=== PATIENT | female | born 1950 | race Two or more races ===

== ENCOUNTER 2022-12-19 16:33 | Inpatient (IN) | payer BC, MEDICAID ==
[~2022-12-19] VITALS: Ht 160 cm; Wt 75.4 kg
[2022-12-19 17:02] LABS: Basophils # (auto) 0 10 ^3/uL (0-0.2); Basophils % (auto) 0.5 % (0.0-2.0); Eosinophils # (auto) 0.2 10 ^3/uL (0-0.8); Eosinophils % (auto) 2.3 % (0.0-7.0); Hemoglobin 13.7 g/dL (12.2-16.2); Lymphocytes % (auto) 44.3 % (10.0-50.0); Mean Corpuscular Hemoglobin 31.2 pg (28.0-32.0); Mean Corpuscular Hgb Conc. 33.5 g/dL (32.0-36.0); Monocytes # (auto) 0.4 10 ^3/uL (0-1.3); Monocytes % (auto) 4.9 % (0.0-12.0); Neutrophils # (auto) 4.3 10 ^3/uL (1.6-8.6); Nucleated Red Blood Cells % 0.1 %; Red Cell Distribution Width 13.5 % (11.8-14.3)
[2022-12-19 17:22] LABS: Calcium 9.1 mg/dL (8.5-10.1); Magnesium 2.2 mg/dL (1.6-2.6); Potassium 4.3 mmol/L (3.5-5.1)
[2022-12-19 17:25] LABS: BUN/Creatinine Ratio 15.7 (10.0-20.0); Bilirubin, Total 0.4 mg/dL (0.2-1.0); Total Protein 7.5 g/dL (6.4-8.2)
[2022-12-19 17:27] LABS: INR 1.11 (0.9-1.15); Partial Thromboplastin Time 30.5 SEC (24.5-34.5)
[2022-12-19] MEDS ORDERED: ASPirin 81 mg TAB PO ONE (18:45)
[2022-12-19 19:46] VITALS: PULSE 58; RESP 12; O2SAT 94
[2022-12-19] MEDS ORDERED: ENOXAPARIN SOD 100 MG/1 ML SYRINGE SC ONE (20:15)
[2022-12-19 20:43] LABS: Urine Bacteria FEW /hpf (None Seen); Urine Blood Negative /uL (Negative); Urine Specific Gravity 1.006 (1.001-1.035); Urine WBC 2 /hpf (0 - 5)
[2022-12-19] MEDS ORDERED: ATORVASTATIN 20 MG TAB PO SCH (20:45)
[2022-12-19] MEDS ORDERED: METOPROLOL TARTRATE 1MG/1ML-5ML VIAL IV ONE (20:45)
[2022-12-19] MEDS ORDERED: hydrALAZINE HCL 20 MG/ML VL IV PRN ×2 (20:45→23:45)
[2022-12-19] MEDS ORDERED: ONDANSETRON HCL 4 MG/2 ML VIAL IV PRN (20:45)
[2022-12-19] MEDS ORDERED: NITROGLYCERIN 0.4 MG SL TAB SL PRN (20:45)
[2022-12-19] MEDS ORDERED: MORPHINE SULFATE INJ 2 MG/ml SYRG IV PRN (20:45)
[2022-12-19] MEDS: SODIUM CHLORIDE 0.9% 1,000 ML IV SCH (21:57)
[2022-12-19] MEDS ORDERED: VERAPAMIL 2.5MG/ML INJ 2ML VIAL IV ONE (22:09)
[2022-12-19] MEDS ORDERED: ANGIOMAX 250 MG VIAL IV ONE (22:09)
[2022-12-19] MEDS ORDERED: HEPARIN SODIUM (PORCINE) 5000 UNITS/ML 1ML VIAL ONE (22:09)
[2022-12-19] MEDS ORDERED: IODIXANOL 320MG/ML 100ML BTL IV ONE (22:10)
[2022-12-19] MEDS ORDERED: fentaNYL CITRATE 100 MCG/2 ML VL ONE (22:10)
[2022-12-19] MEDS ORDERED: LIDOCAINE 2%HCL (LOCAL ANESTH.) INJ 20ML MDV ONE (22:10)
[2022-12-19] MEDS ORDERED: SODIUM CHL 0.9% 50 ML ONE (22:10)
[2022-12-19] MEDS ORDERED: MIDAZOLAM HCL 2MG/2ML 2ml VIAL (1mg/ml) ONE (22:10)
[2022-12-19] MEDS ORDERED: hydrALAZINE HCL 20 MG/ML VL ONE (23:51)
[2022-12-20] MEDS ORDERED: METOPROLOL SUCCINATE XL 50 MG TAB PO ONE (02:00)
[2022-12-20] MEDS ORDERED: ACETAMINOPHEN 325 MG TAB PO PRN (02:00)
[2022-12-20 03:14] VITALS: BP 152/71; PULSE 91; RESP 16; TEMP 97.7; O2SAT 91
[2022-12-20 05:00] VITALS: BP 148/69; PULSE 83; RESP 20; TEMP 98; O2SAT 95
[2022-12-20] MEDS: SODIUM CHLORIDE 0.9% 1,000 ML IV SCH (06:45)
[2022-12-20 07:02] LABS: Basophils # (auto) 0 10 ^3/uL (0-0.2); Basophils % (auto) 0.4 % (0.0-2.0); Eosinophils # (auto) 0 10 ^3/uL (0-0.8); Eosinophils % (auto) 0.3 % (0.0-7.0); Hematocrit 39.8 % (36.0-46.0); Hemoglobin 13.6 g/dL (12.2-16.2); Lymphocytes # (auto) 3.5 10 ^3/uL (0.4-5.4); Lymphocytes % (auto) 30.8 % (10.0-50.0); Mean Corpuscular Hgb Conc. 34.3 g/dL (32.0-36.0); Mean Corpuscular Volume 93.4 fL (80.0-100.0); Monocytes # (auto) 0.6 10 ^3/uL (0-1.3); Monocytes % (auto) 4.9 % (0.0-12.0); Neutrophils # (auto) 7.3 10 ^3/uL (1.6-8.6); Neutrophils % (auto) 63.6 % (37.0-80.0); Nucleated Red Blood Cells % 0.1 %; Red Blood Cells 4.26 10^6/uL (4.0-5.20); Red Cell Distribution Width 13.3 % (11.8-14.3); White Blood Cell 11.4 10^3/uL (4.4-10.8)
[2022-12-20 07:29] LABS: BUN/Creatinine Ratio 24.4 (10.0-20.0); Calcium 8.5 mg/dL (8.5-10.1); Potassium 3.5 mmol/L (3.5-5.1)
[2022-12-20] MEDS ORDERED: fentaNYL CITRATE 100 MCG/2 ML VL ONE (07:38)
[2022-12-20] MEDS ORDERED: ANGIOMAX 250 MG VIAL IV ONE (07:38)
[2022-12-20] MEDS ORDERED: MIDAZOLAM HCL 2MG/2ML 2ml VIAL (1mg/ml) ONE (07:38)
[2022-12-20] MEDS ORDERED: SODIUM CHL 0.9% 0 ML ONE (07:38)
[2022-12-20] MEDS ORDERED: LIDOCAINE 2%HCL (LOCAL ANESTH.) INJ 20ML MDV ONE (07:39)
[2022-12-20] MEDS ORDERED: IOHEXOL 350 MG/ML 100ML IJ ONE (07:39)
[2022-12-20] MEDS ORDERED: HEPARIN IN NS 1000Units/500mL 0 ML ONE (07:39)
[2022-12-20] MEDS ORDERED: ASPI-325 PO (07:53)
[2022-12-20] MEDS ORDERED: METO-6 PO (07:53)
[2022-12-20] MEDS ORDERED: ATOR20TA50 PO (07:53)
[2022-12-20] MEDS ORDERED: LEVO750T8 PO (07:56)
[2022-12-20 08:00] VITALS: PULSE 71; PULSE 81; RESP 16; O2SAT 96
[2022-12-20 09:00] VITALS: BP 148/66; PULSE 71; RESP 17; TEMP 97.8; O2SAT 96
[2022-12-20] MEDS ORDERED: cefTRIAXone 1GM/50ML D5W 50 ML IV SCH (09:00)
[2022-12-20] MEDS ORDERED: ENOXAPARIN SOD 80 MG/0.8ML SYRINGE SC SCH (10:00)
[2022-12-20] MEDS ORDERED: ASPirin 81 mg TAB PO SCH (10:00)
[2022-12-20] MEDS ORDERED: ASPirin-EC 81 mg tab PO SCH (10:00)
[2022-12-20] MEDS ORDERED: METOPROLOL SUCCINATE XL 50 MG TAB PO SCH ×2 (10:00→14:00)
[2022-12-20 10:12] VITALS: BP 148/66; PULSE 72; RESP 18; TEMP 98.2; O2SAT 95
[2022-12-20] MEDS ORDERED: ATORVASTATIN 20 MG TAB PO SCH (22:00)
== END 2022-12-20 12:29 | disposition home health service (06) | DRG 282 ==
LOC: ER 16:33 → TELE 20:54 → TELE-WESTW 22:25
PROVIDERS: ADMIT Hospitalist; ATTEND Hospitalist
PROC: 4A023N7 Measurement of Cardiac Sampling and Pressure, Left Heart, Percutaneous Approach (ICD-10-PCS; principal; 2022-12-19)
PROC: B211YZZ Fluoroscopy of Multiple Coronary Arteries using Other Contrast (ICD-10-PCS; 2022-12-19)
PROC: B215YZZ Fluoroscopy of Left Heart using Other Contrast (ICD-10-PCS; 2022-12-19)
DX: I21.4 Non-ST elevation (NSTEMI) myocardial infarction (principal); I10 Essential (primary) hypertension; I25.2 Old myocardial infarction; M54.30 Sciatica, unspecified side; Z79.899 Other long term (current) drug therapy
CPT/HCPCS: 36415; 71045; 80048; 80053; 80061; 81001; 83036; 83735; 83880; 84484; 85025; 85610; 85730; 93005; 93458; 99152; G0378; J0696; J2250; Q9967

== ENCOUNTER 2025-01-22 18:02 | Emergency (ER) | payer BC, MEDICAID ==
[~2025-01-22] VITALS: Ht 160 cm; Wt 79.5 kg
[~2025-01-22 18:02] MED LIST: ASPI-325 PO; ATOR20TA50 PO; LEVO750T8 PO; METO-6 PO
[2025-01-22 18:44] LABS: Hematocrit 39.2 % (36.0-46.0); Hemoglobin 13.7 g/dL (12.2-16.2); Mean Corpuscular Hemoglobin 32.4 pg (28.0-32.0); Mean Corpuscular Volume 92.5 fL (80.0-100.0); Nucleated Red Blood Cells % 0.1 %
--- NOTE | 2025-01-22 18:55 | ED.PDOC ---
History of Present Illness HPI Comments 74-year-old female came to ER for chest pains. Patient has history of hypertension. States for the past few hours, she has been experiencing epigastric abdominal pain, radiating to her back, associated with midsternal chest pains. She denies any history of abdominal surgeries. Blood pressure up on arrival was 201/112 mmHg Chief Complaint: Chest Pain Time Seen by MD: 18:55 Primary Care Provider: NONE Reviewed Notes: Nurses Notes Allergies: Coded Allergies: NO KNOWN ALLERGIES (Unverified , 12/19/22) Home Meds Active Scripts Levofloxacin (Levaquin 750 mg) 750 Mg Tab, 1 TAB PO DAILY, #5 TAB Prov:GIORGI DONALDSON MD 12/20/22 Metoprolol Succinate (Toprol Xl) 50 Mg Tab, 25 MG PO DAILY for 30 Days, #15 TAB 2 Refills Prov:GIORGI DONALDSON MD 12/20/22 Aspirin (Aspirin Low Dose) 81 Mg Tab, 81 MG PO DAILY for 30 Days, #30 TAB 2 Refills Prov:GIORGI DONALDSON MD 12/20/22 Atorvastatin Calcium (ATORVASTATIN CALCIUM) 20 Mg Tab, 40 MG PO HS for 30 Days, #60 TAB 2 Refills Prov:GIORGI DONALDSON MD 12/20/22 Information Source: Patient Mode of Arrival: Ambulatory Severity: Moderate Timing: Hours Duration: Since onset Past Medical History PAST MEDICAL HISTORY: HTN, [place] Surgical History: Denies all surgeries 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 Family History Family History: Reviewed,noncontributory to illness Social History Smoker: Non-Smoker Alcohol: Denies ETOH Use Drugs: Denies Drug Use Lives In: Home Constitutional: denies: chills, diaphoresis, fatigue, fever, malaise, sweats, weakness, others EENTM: denies: blurred vision, double vision, ear bleeding, ear discharge, ear drainage, ear pain, ear ringing, eye pain, eye redness, hearing loss, mouth pain, mouth swelling, nasal discharge, nose bleeding, nose congestion, nose pain, photophobia, tearing, throat pain, throat swelling, voice changes, others Respiratory: denies: cough, hemoptysis, orthopnea, SOB at rest, shortness of breath, SOB with excertion, stridor, wheezing, others Cardiovascular: reports: chest pain; denies: dizzy spells, diaphoresis, Dyspnea on exertion, edema, irregular heart beat, left arm pain, lightheadedness, palpitations, PND, syncope, others Gastrointestinal: reports: abdominal pain; denies: abdomen distended, blood streaked bowels, constipated, diarrhea, dysphagia, difficulty swallowing, hematemesis, melena, nausea, poor appetite, poor fluid intake, rectal bleeding, rectal pain, vomiting, others Genitourinary: denies: abnormal vagina bleeding, burning, dyspareunia, dysuria, flank pain, frequency, hematuria, incontinence, pain, , vagina discharge, urgency, others Neurological: denies: dizziness, fainting, headache, left sided numbness, left sided weakness, numbness, paresthesia, pre-existing deficit, right sided numbness, right sided weakness, seizure, speech problems, tingling, tremors, weakness, others Musculoskeletal: reports: back pain; denies: gout, joint pain, joint swelling, muscle pain, muscle stiffness, neck pain, others Integumetry: denies: bruises, change in color, change in hair/nails, dryness, laceration, lesions, lumps, rash, wounds, others Allergic/Immunocompromised: denies: Difficulty Healing, Frequent Infections, Hives, Itching, others Hematologic/Lymphatic: denies: anemia, blood clots, easy bleeding, easy bruising, swollen glands, others Endocrine: denies: excessive hunger, excessive sweating, excessive thirst, excessive urination, flushing, intolerance to cold, intolerance to heat, unexpl ained weight gain, unexplained weight loss, others Psychiatric: denies: anxiety, bipolar disorder, depression, hopeless, panic disorder, schizophrenia, sleepless, suicidal, others Physical Exam General Appearance: No Apparent Distress, Normal HEENT: Normal ENT Inspection, Pharynx Normal, TMs Normal Neck: Full Range of Motion, Non-Tender, Normal, Normal Inspection Respiratory: Chest Non-Tender, Lungs Clear, No Accessory Muscle Use, No Respiratory Distress, Normal Breath Sounds Cardiovascular: No Edema, No JVD, No Murmur, No Gallop, Normal Peripheral Pulses, Regular Rate/Rhythm Breast Exam: Deferred Gastrointestinal: No Organomegaly, Non Tender, No Pulsatile Mass, Normal Bowel Sounds, Soft Genitalia: Deferred Pelvic: Deferred Rectal: Deferred Extremities: No calf tenderness, Normal capillary refill, Normal inspection, Normal range of motion, Non-tender, No pedal edema Musculoskeletal : Apperance: Normal Neurologic: Alert, kiln cleaner II-XII nml as Tested, No Motor Deficits, Normal Affect, Normal Mood, No Sensory Deficits Cerebellar Function: Normal Reflexes: Normal Skin: Dry, Normal Color, Warm Lymphatic: No Adenopathy Was a procedure done? Was a procedure done?: No Differential Dx Considerations may include: Anemia, electrolyte imbalance, gallstones, coronary artery disease, hypertensive urgency, GERD X-Ray, Labs, Meds, VS Vital Signs Date Time Temp Pulse Resp B/P (MAP) Pulse Ox O2 Delivery O2 Flow Rate FiO2 01/22/25 20:36 202/91 01/22/25 20:27 97.5 74 18 (128) 95 97.5 01/22/25 19:11 79 01/22/25 18:05 98.3 89 20 201/112 96 98.3 Lab Test 01/22/25 19:34 01/22/25 18:22 Range/Units Troponin I High Sensitivity < 3 L < 3 L </=34 ng/L White Blood Count 12.1 H 4.4-10.8 10^3/uL Red Blood Count 4.24 4.0-5.20 10^6/uL Hemoglobin 13.7 12.2-16.2 g/dL Hematocrit 39.2 36.0-46.0 % Mean Corpuscular Volume 92.5 80.0-100.0 fL Mean Corpuscular Hemoglobin 32.4 H 28.0-32.0 pg Mean Corpuscular Hemoglobin Concent 35.0 32.0-36.0 g/dL Red Cell Distribution Width 13.6 11.8-14.3 % Platelet Count 201 140-450 10^3/uL Mean Platelet Volume 9.3 6.9-10.8 fL Neutrophils (%) (Auto) 54.6 37.0-80.0 % Lymphocytes (%) (Auto) 37.2 10.0-50.0 % Monocytes (%) (Auto) 5.7 0.0-12.0 % Eosinophils (%) (Auto) 2.1 0.0-7.0 % Basophils (%) (Auto) 0.4 0.0-2.0 % Neutrophils # (Auto) 6.6 1.6-8.6 10 ^3/uL Lymphocytes # (Auto) 4.5 0.4-5.4 10 ^3/uL Monocytes # (Auto) 0.7 0-1.3 10 ^3/uL Eosinophils # (Auto) 0.2 0-0.8 10 ^3/uL Basophils # (Auto) 0.1 0-0.2 10 ^3/uL Nucleated Red Blood Cells 0.1 % Sodium Level 140 136-145 mmol/L Potassium Level 3.9 3.5-5.1 mmol/L Chloride Level 106 98-107 mmol/L Carbon Dioxide Level 22 20-31 mmol/L Anion Gap 12 5-15 Blood Urea Nitrogen 8 L 9-23 mg/dL Creatinine 0.68 0.550-1.02 mg/dL Glomerular Filtration Rate Calc 92 >90 mL/min BUN/Creatinine Ratio 11.8 10.0-20.0 Serum Glucose 137 H 74-106 mg/dL Calcium Level 9.5 8.7-10.4 mg/dL Total Bilirubin 0.6 0.2-1.0 mg/dL Aspartate Amino Transferase (AST) 32 13-40 U/L Alanine Aminotransferase (ALT) 33 7-40 U/L Alkaline Phosphatase 58 46-116 U/L B-Type Natriuretic Peptide 34.35 0-100 pg/mL Total Protein 7.8 5.7-8.2 g/dL Albumin 4.4 3.2-4.8 g/dL Lipase 21 12-53 U/L Current Medications Medications (Trade) Dose Ordered Sig/Ever Route Start Time Stop Time Status Last Admin Clonidine HCl (Catapres Tablet) 0.2 mg ONCE ONCE PO 01/22/25 20:45 01/22/25 20:46 DC 01/22/25 20:36 Time of 1ST Reevaluation: 18:53 Reevaluation 1ST: Unchanged Patient Education/Counseling: Diagnosis, Treatment Family Education/Counseling: No Family Present SEPSIS Sepsis Screen Date sepsis recognized/suspect: Jan 22, 2025 Time Sepsis recognized/suspect: 1804 Recent Procedure: No On Antibiotic Therapy: No Respiratory Rate >20: No Heart Rate >90: No Temp<36 C (96.8 F) or >38.3 C: No SBP <90 or MAP <65 mmHG: No New Acute Mental Status Change: No Is the patient on CPAP, BIPAP,: No Physician Orders Electrocardigram (01/22/25 18:11) Troponin-I Hs (01/22/25 21:11) Chest Xray 1 View (01/22/25 18:11) Gallbladder (01/22/25 18:52) Vital Signs Date Time Temp Pulse Resp B/P (MAP) Pulse Ox O2 Delivery O2 Flow Rate FiO2 01/22/25 20:36 202/91 01/22/25 20:27 97.5 74 18 202/ (128) 95 97.5 01/22/25 19:11 79 01/22/25 18:05 98.3 89 20 201/112 96 98.3 Laboratory Tests Test 01/22/25 18:22 White Blood Count 12.1 10^3/uL (4.4-10.8) H Medications Medications Dose Ordered Sig/Ever Route Start Time Stop Time Status Last Admin Dose Admin Clonidine HCl 0.2 mg ONCE ONCE PO 01/22/25 20:45 01/22/25 20:46 DC 01/22/25 20:36 Departure 1 Departure Time of Disposition: 20:51 Impression: Primary Impression: Acute cholecystitis Disposition: ADMITTED INPATIENT Admit to: Med Surg Condition: Guarded Comments 74-year-old female complaining of epigastric pain. She is quite tender there. On lab review her white blood cell count is elevated at 12. Ultrasound shows cholecystitis with gallstones and wall thickening. Patient was given IV fluids and Zosyn antibiotics. Patient will need admission for specialty consultation and possible cholecystectomy. Critical Care Note Critical Care Time?: Yes (35 min-critical care time only) Critical care comment: Total critical care time: Approximately 36 minutes Due to a high probability of clinically significant, life threatening deteriora tion, the patient required my highest level of preparedness to intervene emergently and I personally spent this critical care time directly and personally managing the patient. This critical care time included obtaining a history; examining the patient; pulse oximetry; ordering and review of studies; arranging urgent treatment with development of a management plan; evaluation of patient's response to treatment; frequent reassessment; and, discussions with other providers. This critical care time was performed to assess and manage the high probability of imminent, life-threatening deterioration that could result in multi-organ failure. It was exclusive of separately billable procedures and treating other patients. Stability Stability form required: No Heart Score Heart Score: Heart Score Response (Comments) Value History Slightly Suspicious 0 EKG Repolarization Disturb 1 Age >65 2 Risk Factors >3 or Hx ASHD 2 Troponin Normal limit 0 Total 5 I personally scribed for MARCELO HILLIARD MD ([email or web address]) on 01/22/25 at 18:55. Electronically submitted by Gene Calvert ([email or web address]). MARCELO HILLIARD MD Jan 22, 2025 18:55
[2025-01-22 18:58] LABS: Alanine Aminotransferase 33 U/L (7-40); Albumin 4.4 g/dL (3.2-4.8); Alkaline Phosphatase 58 U/L (46-116); Anion Gap 12 (5-15); BUN/Creatinine Ratio 11.8 (10.0-20.0); Bilirubin, Total 0.6 mg/dL (0.2-1.0); Blood Urea Nitrogen 8 mg/dL (9-23); Calcium 9.5 mg/dL (8.7-10.4); Carbon Dioxide 22 mmol/L (20-31); Chloride 106 mmol/L (98-107); Glucose 137 mg/dL (74-106); Potassium 3.9 mmol/L (3.5-5.1); Sodium 140 mmol/L (136-145); Total Protein 7.8 g/dL (5.7-8.2)
--- NOTE | 2025-01-22 19:02 | DVH ---
CHEST RADIOGRAPH Indication: chest pain Technique: Single frontal view of the chest was obtained Comparison: XY CHEST PORTABLE on DOS: 12/19/22 FINDINGS: Lines and Tubes: None Lungs: No focal consolidation. Pleura: No effusion. No pneumothorax. Cardiomediastinal contours: Unremarkable Bones: No acute osseous abnormality. IMPRESSION: 1. No acute cardiopulmonary disease.
--- NOTE | 2025-01-22 20:22 | DVH ---
INDICATION: RUQ pain TECHNIQUE: Multiple real-time sonographic images of the abdomen were obtained. COMPARISON: None FINDINGS: Hepatic parenchyma is echogenic consistent with steatosis The liver measures 14.85 cm. No intrahepatic biliary ductal dilatation is noted. The gallbladder wall measures 0.62 cm and is consistent with gallbladder wall thickening. Cholelith iasis is noted The common duct measures 0.33 cm and is unremarkable. No pericholecystic fluid is no dinora. Pericholecystic fluid. Sonographic Brunson's sign. The right kidney measures 10.42 cm. No hydronephrosis. The pancreas is not well visualized due to obscuration from bowel gas. IMPRESSION: 1. Cholelithiasis with sonographic findings consistent with acute cholecystitis. Thickened gallbladde r wall measuring 6 mm. 2. 14.85 cm liver with findings consistent with steatosis.
[2025-01-22 20:27] VITALS: BP 202/91; PULSE 74; RESP 18; TEMP 97.5; O2SAT 95
[2025-01-22] MEDS ORDERED: PIPERACILLIN-TAZOB 3.375GM 100 ML IV ONE (21:00)
--- NOTE | 2025-01-25 06:21 | ECG ---
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
--- NOTE | 2025-01-28 13:39 | ECG ---
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
== END 2025-01-22 23:26 | disposition left against medical advice (07) ==
LOC: ER 18:05
DX: K80.00 Calculus of gallbladder with acute cholecystitis without obstruction (principal); R07.2 Precordial pain; I10 Essential (primary) hypertension; Z79.82 Long term (current) use of aspirin; Z79.899 Other long term (current) drug therapy
CPT/HCPCS: 36415; 71045; 76705; 80053; 83605; 83690; 83880; 84484; 85025; 87040; 93005

== ENCOUNTER 2025-01-24 11:22 | Emergency (ER) | payer BC, MEDICAID ==
[~2025-01-24] VITALS: Ht 160 cm; Wt 78.4 kg
--- NOTE | 2025-01-24 11:54 | ED.PDOC ---
History of Present Illness HPI Comments 74-year-old female who is Divehi-speaking presents to the ER with prior medical history of the hypertension, mi in the chief complaint of abdominal pain. Patient reports on being here two days ago for similar symptoms and they did an ultrasound, blood work but before the patient could get the results they left AMA. Patient is still complaining of lower abdominal pain with nausea. Denies chills, fever, /V/D, SOB, CP. No other associated symptoms, modifiers, recent injuries or sick contacts present at this time. Chief Complaint: Abdominal Pain Time Seen by MD: 11:50 Primary Care Provider: NONE Reviewed Notes: Nurses Notes, Medications, Allergies Allergies: Coded Allergies: NO KNOWN ALLERGIES (Unverified , 12/19/22) Home Meds Active Scripts Levofloxacin (Levaquin 750 mg) 750 Mg Tab, 1 TAB PO DAILY, #5 TAB Prov:GIORGI DONALDSON MD 12/20/22 Metoprolol Succinate (Toprol Xl) 50 Mg Tab, 25 MG PO DAILY for 30 Days, #15 TAB 2 Refills Prov:GIORGI DONALDSON MD 12/20/22 Aspirin (Aspirin Low Dose) 81 Mg Tab, 81 MG PO DAILY for 30 Days, #30 TAB 2 Refills Prov:GIORGI DONALDSON MD 12/20/22 Atorvastatin Calcium (ATORVASTATIN CALCIUM) 20 Mg Tab, 40 MG PO HS for 30 Days, #60 TAB 2 Refills Prov:GIORGI DONALDSON MD 12/20/22 Information Source: Patient Mode of Arrival: Ambulatory Severity: Moderate Timing: Days Duration: Since onset, Days Prehospital treatment: None Past Medical History PAST MEDICAL HISTORY: HTN, [place] Surgical History: Denies all surgeries 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 SUPPLY Hx Family History Family History: Reviewed,noncontributory to illness, Unknown Social History Smoker: Non-Smoker Alcohol: Denies ETOH Use Drugs: Denies Drug Use Lives In: Home Constitutional: denies: chills, diaphoresis, fatigue, fever, malaise, sweats, weakness, others EENTM: denies: blurred vision, double vision, ear bleeding, ear discharge, ear drainage, ear pain, ear ringing, eye pain, eye redness, hearing loss, mouth pain, mouth swelling, nasal discharge, nose bleeding, nose congestion, nose pain, photophobia, tearing, throat pain, throat swelling, voice changes, others Respiratory: denies: cough, hemoptysis, orthopnea, SOB at rest, shortness of breath, SOB with excertion, stridor, wheezing, others Cardiovascular: denies: chest pain, dizzy spells, diaphoresis, Dyspnea on exertion, edema, irregular heart beat, left arm pain, lightheadedness, palpitations, PND, syncope, others Gastrointestinal: reports: abdominal pain, nausea; denies: abdomen distended, blood streaked bowels, constipated, diarrhea, dysphagia, difficulty swallowing, hematemesis, melena, poor appetite, poor fluid intake, rectal bleeding, rectal pain, vomiting, others Genitourinary: denies: abnormal vagina bleeding, burning, dyspareunia, dysuria, flank pain, frequency, hematuria, incontinence, pain, , vagina discha rge, urgency, others Neurological: denies: dizziness, fainting, headache, left sided numbness, left sided weakness, numbness, paresthesia, pre-existing deficit, right sided numbness, right sided weakness, seizure, speech problems, tingling, tremors, weakness, others Musculoskeletal: denies: back pain, gout, joint pain, joint swelling, muscle pain, muscle stiffness, neck pain, others Integumetry: denies: bruises, change in color, change in hair/nails, dryness, laceration, lesions, lumps, rash, wounds, others Allergic/Immunocompromised: denies: Difficulty Healing, Frequent Infections, Hives, Itching, others Hematologic/Lymphatic: denies: anemia, blood clots, easy bleeding, easy bruising, swollen glands, others Endocrine: denies: excessive hunger, excessive sweating, excessive thirst, excessive urination, flushing, intolerance to cold, intolerance to heat, unexplained weight gain, unexplained weight loss, others Psychiatric: denies: anxiety, bipolar disorder, depression, hopeless, panic disorder, schizophrenia, sleepless, suicidal, others All Other Systems: Reviewed and Negative Physical Exam General Appearance: Moderate Distress, Normal HEENT: Normal ENT Inspection, Pharynx Normal, TMs Normal Neck: Full Range of Motion, Non-Tender, Normal, Normal Inspection Respiratory: Chest Non-Tender, Lungs Clear, No Accessory Muscle Use, No Respiratory Distress, Normal Breath Sounds Cardiovascular: No Edema, No JVD, No Murmur, No Gallop, Normal Peripheral Pulses, Regular Rate/Rhythm Breast Exam: Deferred Gastrointestinal: Diffuse, No Organomegaly, No Pulsatile Mass, Normal Bowel Sounds, Soft Genitalia: Deferred Pelvic: Deferred Rectal: Deferred Extremities: No calf tenderness, Normal capillary refill, Normal inspection, Normal range of motion, Non-tender, No pedal edema Musculoskeletal : Apperance: Normal Neurologic: Alert, sludge control attendant II-XII nml as Tested, No Motor Deficits, Normal Affect, Normal Mood, No Sensory Deficits Cerebellar Function: Normal Reflexes: Normal Skin: Dry, Normal Color, Warm Peripheral Pulses: 3+ Radial (R), 3+ Radial (L) Lymphatic: No Adenopathy Was a procedure done? Was a procedure done?: No Differential Dx Considerations may include: Acute cholecystitis Electrolyte imbalance X-Ray, Labs, Meds, VS Vital Signs Date Time Temp Pulse Resp B/P (MAP) Pulse Ox O2 Delivery O2 Flow Rate FiO2 01/24/25 14:01 94 18 169/76 01/24/25 13:43 98.0 94 18 169/76 (107) 91 98.0 01/24/25 12:14 95 16 94 Room Air 01/24/25 12:14 98.0 95 16 167/81 (109) 94 98.0 01/24/25 11:25 97.7 90 15 160/90 99 97.7 Lab Test 01/24/25 12:52 Range/Units White Blood Count 15.3 #H 4.4-10.8 10^3/uL Red Blood Count 4.48 4.0-5.20 10^6/uL Hemoglobin 14.2 12.2-16.2 g/dL Hematocrit 41.5 36.0-46.0 % Mean Corpuscular Volume 92.7 80.0-100.0 fL Mean Corpuscular Hemoglobin 31.6 28.0-32.0 pg Mean Corpuscular Hemoglobin Concent 34.1 32.0-36.0 g/dL Red Cell Distribution Width 13.5 11.8-14.3 % Platelet Count 199 140-450 10^3/uL Mean Platelet Volume 9.3 6.9-10.8 fL Neutrophils (%) (Auto) 61.5 37.0-80.0 % Lymphocytes (%) (Auto) 29.9 10.0-50.0 % Monocytes (%) (Auto) 7.1 0.0-12.0 % Eosinophils (%) (Auto) 0.8 0.0-7.0 % Basophils (%) (Auto) 0.7 0.0-2.0 % Neutrophils # (Auto) 9.4 H 1.6-8.6 10 ^3/uL Lymphocytes # (Auto) 4.6 0.4-5.4 10 ^3/uL Monocytes # (Auto) 1.1 0-1.3 10 ^3/uL Eosinophils # (Auto) 0.1 0-0.8 10 ^3/uL Basophils # (Auto) 0.1 0-0.2 10 ^3/uL Nucleated Red Blood Cells 0.0 % Sodium Level 137 136-145 mmol/L Potassium Level 4.0 3.5-5.1 mmol/L Chloride Level 103 98-107 mmol/L Carbon Dioxide Level 25 20-31 mmol/L Anion Gap 9 5-15 Blood Urea Nitrogen 10 9-23 mg/dL Creatinine 0.61 0.550-1.02 mg/dL Glomerular Filtration Rate Calc 95 >90 mL/min BUN/Creatinine Ratio 16.4 10.0-20.0 Serum Glucose 122 H 74-106 mg/dL Lactic Acid Level 0.9 0.4-2.0 mmol/L Calcium Level 9.7 8.7-10.4 mg/dL Total Bilirubin 0.8 0.2-1.0 mg/dL Aspartate Amino Transferase (AST) 20 13-40 U/L Alanine Aminotransferase (ALT) 21 7-40 U/L Alkaline Phosphatase 62 46-116 U/L Total Protein 8.1 5.7-8.2 g/dL Albumin 4.6 3.2-4.8 g/dL Current Medications Medications (Trade) Dose Ordered Sig/Ever Route Start Time Stop Time Status Last Admin Ondansetron HCl (Zofran) 4 mg ONCE ONCE IV 01/24/25 12:30 01/24/25 12:31 DC 01/24/25 14:00 Sodium Chloride 1,000 ml @ 1,000 mls/hr Q1H ONCE IVB 01/24/25 12:30 01/24/25 13:29 DC 01/24/25 13:23 Morphine Sulfate 4 mg ONCE ONCE IV 01/24/25 12:30 01/24/25 12:31 DC 01/24/25 14:01 Piperacillin Sod/ Tazobactam Sod 100 ml @ 100 mls/hr ONCE ONCE IV 01/24/25 12:30 01/24/25 13:29 DC 01/24/25 14:00 Patient alert. Came in because of abdominal pain. Vitals stable. Answering questions. Establish intravenous access. Was given fluids pain Was given morphine. Was given Zofran. Was given Zosyn. Reviewed her previous visit. Ultrasound done during her last visit few days ago does show acute cholecystitis. She was given Zosyn. Surgical consultation. Explained to the patient. Continue monitoring. Time of 1ST Reevaluation: 16:20 Reevaluation 1ST: Unchanged Patient Education/Counseling: Diagnosis, Treatment, Prognosis Family Education/Counseling: Diagnosis, Treatment, Prognosis SEPSIS Sepsis Screen Date sepsis recognized/suspect: Jan 24, 2025 Time Sepsis recognized/suspect: 1124 Recent Procedure: No On Antibiotic Therapy: No Respiratory Rate >20: No Heart Rate >90: No Temp<36 C (96.8 F) or >38.3 C: No SBP <90 or MAP <65 mmHG: No New Acute Mental Status Change: No Is the patient on CPAP, BIPAP,: No Physician Orders Urinalysis (01/24/25 12:28) Sodium Chloride 0.9% (01/24/25 12:30) Blood Culture (01/24/25 12:28) Vital Signs Date Time Temp Pulse Resp B/P (MAP) Pulse Ox O2 Delivery O2 Flow Rate FiO2 01/24/25 14:01 94 18 169/76 01/24/25 13:43 98.0 94 18 169/76 (107) 91 98.0 01/24/25 12:14 95 16 94 Room Air 01/24/25 12:14 98.0 95 16 167/81 (109) 94 98.0 01/24/25 11:25 97.7 90 15 160/90 99 97.7 Laboratory Tests Test 01/24/25 12:52 Lactic Acid Level 0.9 mmol/L (0.4-2.0) White Blood Count 15.3 10^3/uL (4.4-10.8) #H Medications Medications Dose Ordered Sig/Ever Route Start Time Stop Time Status Last Admin Dose Admin Morphine Sulfate 4 mg ONCE ONCE IV 01/24/25 12:30 01/24/25 12:31 DC 01/24/25 14:01 Ondansetron HCl 4 mg ONCE ONCE IV 01/24/25 12:30 01/24/25 12:31 DC 01/24/25 14:00 Piperacillin Sod/ Tazobactam Sod 100 ml @ 100 mls/hr ONCE ONCE IV 01/24/25 12:30 01/24/25 13:29 DC 01/24/25 14:00 Sodium Chloride 1,000 ml @ 1,000 mls/hr Q1H ONCE IVB 01/24/25 12:30 01/24/25 13:29 DC 01/24/25 13:23 Departure 1 Departure Time of Disposition: 15:07 Impression: Primary Impression: Acute cholecystitis Disposition: ADMITTED INPATIENT Admit to: Med Surg Condition: Guarded Critical Care Note Critical Care Time?: Yes (90 min-critical care time only) Stability Stability form required: No Heart Score Heart Score: Heart Score Response (Comments) Value History N/A 0 EKG N/A 0 Age N/A 0 Risk Factors N/A 0 Troponin N/A 0 Total 0 I personally scribed for CORINE REDMOND MD ([email or web address]) on 01/24/25 at 11:54. Electronically submitted by Abhijeet Mann ([email or web address]). CORINE REDMOND MD Jan 24, 2025 11:54
[2025-01-24 13:11] LABS: Hematocrit 41.5 % (36.0-46.0); Hemoglobin 14.2 g/dL (12.2-16.2); Mean Corpuscular Hemoglobin 31.6 pg (28.0-32.0); Mean Corpuscular Volume 92.7 fL (80.0-100.0); Nucleated Red Blood Cells % 0.0 %
[2025-01-24] MEDS: SODIUM CHLORIDE 0.9% 1,000 ML IVB ONE (13:23)
[2025-01-24 13:31] LABS: Alanine Aminotransferase 21 U/L (7-40); Albumin 4.6 g/dL (3.2-4.8); Alkaline Phosphatase 62 U/L (46-116); Anion Gap 9 (5-15); BUN/Creatinine Ratio 16.4 (10.0-20.0); Bilirubin, Total 0.8 mg/dL (0.2-1.0); Blood Urea Nitrogen 10 mg/dL (9-23); Calcium 9.7 mg/dL (8.7-10.4); Carbon Dioxide 25 mmol/L (20-31); Chloride 103 mmol/L (98-107); Potassium 4.0 mmol/L (3.5-5.1); Sodium 137 mmol/L (136-145); Total Protein 8.1 g/dL (5.7-8.2)
[2025-01-24 13:37] LABS: Glucose 122 mg/dL (74-106)
[2025-01-24] MEDS: PIPERACILLIN-TAZOB 3.375GM 100 ML IV ONE (14:00)
[2025-01-24] MEDS: ONDANSETRON HCL 4 MG/2 ML VIAL IV ONE (14:00)
[2025-01-24] MEDS: MORPHINE SULFATE 4 MG/ML SYR/VIAL IV ONE (14:01)
[2025-01-24] MEDS: SODIUM CHLORIDE 0.9% 1,000 ML IV ONE (15:58)
[2025-01-24 19:23] LABS: Urine Protein, UAD TRACE (Negative)
[2025-01-24 23:12] VITALS: BP 139/68; PULSE 75; RESP 20; TEMP 97.8; O2SAT 96
== END 2025-01-24 22:00 | disposition short-term general hospital (02) ==
LOC: ER 11:22
DX: K81.0 Acute cholecystitis (principal); I10 Essential (primary) hypertension; Z79.899 Other long term (current) drug therapy; Z79.82 Long term (current) use of aspirin
CPT/HCPCS: 36415; 80053; 81001; 83605; 85025; 87040; 96361; 96365; 96366; 96368; 96375; 99285; J2270; J2405; J2543; J3490; J7030